=== PATIENT | male | born 1945 | race Caucasian/White ===

== ENCOUNTER 2019-05-13 01:58 | Inpatient (IN) | payer MEDICAID, OTHER ==
[~2019-05-13] VITALS: Ht 175.3 cm; Wt 64.9 kg
[2019-05-13 04:54] LABS: BASOPHILS % 0.5 % (0.0-2.0); EOSINOPHILS % 4.2 % (0.0-5.0); HEMATOCRIT. 50.6 % (42.0-52.0); HEMOGLOBIN. 17.2 g/dL (14.0-18.0); LYMPHOCYTES % 24.9 % (20.0-50.0); MEAN CORPUSCULAR HEMOGLOBIN 30.5 pg (28.0-32.0); MEAN CORPUSCULAR VOLUME 89.8 fL (80.0-94.0); MEAN PLATELET VOLUME 8.4 fl (7.4-10.4); MONOCYTES % 6.6 % (2.0-8.0); NEUTROPHILS % 63.8 % (40.0-76.0); PLATELET 298 x1000/uL (130-400); RED BLOOD CELL COUNT 5.63 mill/uL (4.7-6.1); RED CELL DISTRIBUTION WIDTH 14.9 % (11.6-14.6)
[2019-05-13 05:00] LABS: INR 1.1; PROTHROMBIN TIME 11.9 sec (9.6-11.0)
[2019-05-13] MEDS ORDERED: ASPIRIN 325MG EC TABLET PO ONE (05:00)
[2019-05-13] MEDS ORDERED: NITROGLYCERIN OINT 1GM/INCH UDPKT TD ONE (05:00)
[2019-05-13 05:06] LABS: CHLORIDE 109 mEq/L (98-107)
[2019-05-13] MEDS ORDERED: MORPHINE SULFATE 2 MG/ML CPJ (NOT FOR IM USE) IV PRN (07:15)
[2019-05-13] MEDS ORDERED: GUAIFENESIN 200MG/10ML SUGAR FREE UDC PO PRN (07:15)
[2019-05-13] MEDS ORDERED: DOCUSATE SODIUM 100MG CAPSULE PO PRN (07:15)
[2019-05-13] MEDS ORDERED: CLONIDINE 0.1MG TABLET PO PRN (07:15)
[2019-05-13] MEDS ORDERED: MAGNESIUM/ALUMINUM HYDROXIDE/SIMETHICONE 30ML UDC PO PRN (07:15)
[2019-05-13] MEDS ORDERED: ONDANSETRON HCL 4MG/2ML INJ IV PRN (07:15)
[2019-05-13] MEDS ORDERED: DIPHENHYDRAMINE 50MG/ML VIAL IV PRN (07:15)
[2019-05-13] MEDS ORDERED: IPRATROPIUM/ALBUTEROL 0.5-3(2.5)MG/3ML NEB HHN PRN (07:15)
[2019-05-13] MEDS ORDERED: LORAZEPAM 2MG/ML CPJ IV PRN (07:15)
[2019-05-13] MEDS ORDERED: HYDRALAZINE 20MG/ML VIAL IV PRN (07:15)
[2019-05-13] MEDS ORDERED: HYDROCODONE/ACETAMINOPHEN 10/325MG TABLET PO PRN (07:15)
[2019-05-13 12:38] LABS: T4 FREE 1.12 ng/dL (0.76-1.46)
[2019-05-13 12:45] VITALS: BP 114/68
[2019-05-13 13:30] VITALS: BP 114/68
[2019-05-13] MEDS ORDERED: SERT25TA PO (15:30)
[2019-05-13] MEDS ORDERED: TAMS-11 PO (15:32)
[2019-05-13] MEDS: SODIUM CHLORIDE 0.9% INJ 3ML FLUSH IVF SCH ×2 (15:37→23:53)
[2019-05-13] MEDS: ACETAMINOPHEN 325MG TABLET PO PRN (15:38)
[2019-05-13] MEDS: ENOXAPARIN 40MG/0.4ML SYR SUBCUT SCH (15:38)
[2019-05-13 16:00] VITALS: BP 99/63
[2019-05-13 18:05] LABS: CREATINE KINASE 79 IU/L (39-308)
[2019-05-13 18:06] LABS: CREATINE KINASE MB FRACTION < 1.0 ng/mL (0.5-3.6)
[2019-05-13 19:53] VITALS: BP 104/63
[2019-05-13 23:47] VITALS: BP 117/70
[2019-05-13 23:48] LABS: CREATINE KINASE 69 IU/L (39-308)
[2019-05-13 23:49] LABS: CREATINE KINASE MB FRACTION < 1.0 ng/mL (0.5-3.6)
[2019-05-14 03:39] VITALS: BP 114/70
[2019-05-14] MEDS: SODIUM CHLORIDE 0.9% INJ 3ML FLUSH IVF SCH ×2 (06:04→16:34)
[2019-05-14 07:27] LABS: BASOPHILS % 0.6 % (0.0-2.0); HEMATOCRIT. 48.6 % (42.0-52.0); HEMOGLOBIN. 16.2 g/dL (14.0-18.0); LYMPHOCYTES % 23.5 % (20.0-50.0); MEAN CORPUSCULAR VOLUME 90.3 fL (80.0-94.0); MEAN PLATELET VOLUME 8.7 fl (7.4-10.4); MONOCYTES % 6.5 % (2.0-8.0); NEUTROPHILS % 64.4 % (40.0-76.0); PLATELET 276 x1000/uL (130-400); RED BLOOD CELL COUNT 5.38 mill/uL (4.7-6.1); RED CELL DISTRIBUTION WIDTH 14.9 % (11.6-14.6)
[2019-05-14 08:00] VITALS: BP 111/71
[2019-05-14 08:35] LABS: CHLORIDE 109 mEq/L (98-107)
[2019-05-14] MEDS ORDERED: ASPIRIN 81MG TABLET PO SCH (09:00)
[2019-05-14] MEDS ORDERED: CLOPIDOGREL 75MG TABLET PO SCH (09:00)
[2019-05-14] MEDS: ACETAMINOPHEN 325MG TABLET PO PRN (09:16)
[2019-05-14] MEDS ORDERED: REGADENOSON 0.4 MG/5 ML IV NR (09:45)
[2019-05-14 12:00] VITALS: BP 120/74
[2019-05-14] MEDS ORDERED: REGADENOSON 0.4 MG/5 ML IV ONE (12:56)
[2019-05-14 16:16] VITALS: BP 135/75
[2019-05-14 16:21] VITALS: BP 135/75
[2019-05-14] MEDS: ENOXAPARIN 40MG/0.4ML SYR SUBCUT SCH (16:34)
== END 2019-05-14 17:30 | disposition home or self-care (01) | DRG 203 ==
LOC: ER 01:58 → 5WST 05:26 → EDBEDREQ 05:29 → EDBEDREQTM 05:29 → ENRESERV 11:52
PROVIDERS: ADMIT Internal Medicine; ATTEND Internal Medicine
DX: M94.0 Chondrocostal junction syndrome [Tietze] (principal); E87.8 Other disorders of electrolyte and fluid balance, not elsewhere classified; F17.200 Nicotine dependence, unspecified, uncomplicated; I10 Essential (primary) hypertension; Z86.73 Personal history of transient ischemic attack (TIA), and cerebral infarction without residual deficits; Z90.89 Acquired absence of other organs
CPT/HCPCS: 36415; 71045; 78452; 78582; 80053; 80061; 82550; 82553; 83036; 83880; 84439; 84443; 84484; 85025; 85379; 93005; 93017; 93306; 93970; 96372; 99285; A9500; A9558; J1650; J2785